=== PATIENT | female | born 1965 | race Caucasian/White ===

== ENCOUNTER → 2020-08-13 | Outpatient (CLI) | payer OTHER ==
--- NOTE | 2020-08-13 16:45 | MR ---
EXAMINATION TYPE: MR knee RT wo con DATE OF EXAM: 08/13/2020 COMPARISON: None HISTORY: Right knee pain TECHNIQUE: Multiplanar, multisequence imaging of the right knee is performed without IV contrast. FINDINGS: MEDIAL MENISCUS: There is increased signal within the substance of the posterior horn medial meniscus . Communication with an articular surface is not identified. Internal derangement type I tear could b e considered. Anterior horn medial meniscus appears intact. LATERAL MENISCUS: Anterior and posterior horns are intact without tear. CRUCIATE LIGAMENTS: The anterior and posterior cruciate ligaments are intact and unremarkable. COLLATERAL LIGAMENTS: The medial collateral ligament and lateral collateral ligament complex are inta ct. Medial collateral ligament has increased signal adjacent. Mild sprain could be considered. EXTENSOR MECHANISM: Visualized quadriceps and patellar tendons are intact. EFFUSION: There is a moderate suprapatellar joint effusion present. POPLITEAL CYST: No popliteal/gutierrez cyst. TRICOMPARTMENT SPACES: There is narrowing of the medial compartment joint space. CARTILAGE: Thinning of the articular cartilage is noted at the medial femoral condyle and medial tibi al plateau. Milder thinning of the articular cartilage is in the lateral compartment. Patellofemoral joint space cartilage appears preserved. BONE MARROW SIGNAL: There is increased signal within the medial aspect of the medial femoral condyle and medial tibial plateau. Small contusions could be considered OTHER: No additional significant abnormality is appreciated. IMPRESSION: 1. Contusion of the medial femoral condyle and medial tibial plateau. 2. Sprain of the medial collateral ligament. 3. Type I tear posterior horn medial meniscus. 4. Moderate joint effusion. 5. Osteoarthritic degenerative change medial compartment.
== END | disposition home or self-care (01) ==
LOC: RADMRIMAIN 11:25
PROVIDERS: ATTEND Orthopaedic Surgery
DX: S83.241A Other tear of medial meniscus, current injury, right knee, initial encounter (principal); S80.01XA Contusion of right knee, initial encounter; S83.411A Sprain of medial collateral ligament of right knee, initial encounter; M17.11 Unilateral primary osteoarthritis, right knee

== ENCOUNTER → 2020-08-20 | Outpatient (CLI) | payer OTHER ==
[2020-08-20 15:43] LABS: Basophils # (A) 0.1 k/uL (0-0.2); Basophils % (A) 1 %; Eosinophils # (A) 0.1 k/uL (0-0.7); Eosinophils % (A) 2 %; HCT 45.8 % (34.0-46.0); HGB 14.6 gm/dL (11.4-16.0); Lymphocytes # (A) 2.9 k/uL (1.0-4.8); Lymphocytes % (A) 37 %; MCHC 31.8 g/dL (31.0-37.0); MCV 94.4 fL (80.0-100.0); Mean Platelet Volume 7.3; Monocytes # (A) 0.3 k/uL (0-1.0); Monocytes % (A) 4 %; Neutrophils # (A) 4.2 k/uL (1.3-7.7); Neutrophils % (A) 54 %; Platelet Count 335 k/uL (150-450); RBC 4.86 m/uL (3.80-5.40); RDW 13.7 % (11.5-15.5); WBC 7.8 k/uL (3.8-10.6)
[2020-08-20 15:48] LABS: Potassium 5.1 mmol/L (3.5-5.1)
== END | disposition home or self-care (01) ==
LOC: LABPAT 14:44
PROVIDERS: ATTEND Orthopaedic Surgery
DX: Z01.818 Encounter for other preprocedural examination (principal); M23.91 Unspecified internal derangement of right knee
CPT/HCPCS: 36415; 80051; 85025

== ENCOUNTER 2020-08-28 13:32 | Day surgery (SDC) | payer OTHER ==
--- NOTE | 2020-08-26 10:07 | HP ---
HISTORY AND PHYSICAL CHIEF COMPLAINT: Right knee pain. HISTORY OF PRESENT ILLNESS: The patient is a 55-year-old female who presents with progressive right knee pain for the past 4 months. She notes anterior medial pain along with swelling. She notes twisting and prolonged walking bother her significantly. She has tried injections in addition to medications in addition to activity modifications without much relief. She is having night symptoms. She is taking meloxicam twice daily. PAST MEDICAL HISTORY: Significant for anxiety and depression. PAST SURGICAL HISTORY: Significant for left hip and ankle surgery. FAMILY HISTORY: Noncontributory. SOCIAL HISTORY: Negative for current tobacco or alcohol use. CURRENT MEDICATIONS: Aspirin, Duloxetine, gabapentin, lamotrigine, omeprazole, hydrocodone. She denies drug allergies. FAMILY HISTORY: Noncontributory. 16 POINT REVIEW OF SYSTEMS: Otherwise reviewed and is noncontributory. PHYSICAL EXAMINATION: On examination, the patient is approximately 5 foot 6, 200 pounds of endomorphic habitus. HEENT exam is nonfocal. NECK: Supple she has painless passive motion of the right hip. Straight leg raise is negative. Active motion right knee -16 and 80 degrees of flexion. She has a large effusion. She is tender about the medial joint line. Collaterals are stable, Tristen is negative, Jag's elicits medial pain. She has an antalgic gait pattern. Her distal neurovascular exam appears intact in the right lower extremity. MRI report for the right knee shows evidence of a medial femoral condyle contusion along with edema about the medial tibial plateau. MCL sprain is noted. There is increased signal in posterior horn medial meniscus along with a moderate effusion. IMPRESSION: Right knee internal derangement, possible medial meniscal tear/possible medial femoral condyle chondral injury. RECOMMENDATIONS: I talked to the patient at length regarding her condition and treatment options. At this point, she remains quite symptomatic despite previous conservative measures. After thorough discussion, she opts to proceed with surgery. We will plan to proceed with arthroscopic evaluation with possible partial medial meniscectomy in addition to possible medial femoral chondrectomy. Will likely perform that as an outpatient procedure. Risks and benefits were discussed at length in layman's terms. MMODL / IJN: [id number] /
[2020-08-26 14:06] VITALS: BMI 30.7
[~2020-08-28 13:32] MED LIST: DEXAMETHASONE SOD PHOSPHATE 4 MG/ML 1 ML VIAL IV ONE; LACTATED RINGERS 1,000 ML IV SCH; LIDOCAINE 1% (10MG/ML) FOR IV START INTRADERMA PRN; MIDAZOLAM 2 MG/2 ML VIAL IV PRN
[2020-08-28] MEDS ORDERED: ONDANSETRON 4 MG/2 ML VIAL ONE (13:35)
[2020-08-28] MEDS ORDERED: SCOPOLAMINE 1.5MG/72HR PATCH TRANSDERM ONE (14:04)
[2020-08-28] MEDS ORDERED: fentaNYL (PF) 50 MCG/ML 2 ML AMP ONE (14:30)
[2020-08-28] MEDS ORDERED: PROPOFOL 10 MG/ML 20 ML VIAL IV ONE (14:30)
[2020-08-28] MEDS ORDERED: LIDOCAINE 1% INJ 10MG/ML (20 ML MDV) ONE (14:30)
[2020-08-28] MEDS ORDERED: SUCCINYLCHOLINE CHLORIDE 100 MG/5 ML SYR IV ONE (14:30)
[2020-08-28] MEDS ORDERED: MIDAZOLAM 2 MG/2 ML VIAL ONE (14:30)
--- NOTE | 2020-08-28 15:16 | P.OP ---
Date of Procedure: 08/28/20 Preoperative Diagnosis: Right knee internal derangement Postoperative Diagnosis: Right knee posterior medial meniscal tear/grade 3 chondral injury distal central medial femoral condyle/middle one third lateral meniscal tear Procedure(s) Performed: Right knee arthroscopic partial medial meniscectomy/partial lateral meniscectomy/medial femoral chondrectomy/microfracture medial femoral condyle Anesthesia: GENE Surgeon: Thiago Beckwith Estimated Blood Loss (ml): 10 Pathology: none sent Condition: stable Disposition: PACU Indications for Procedure: The patient's a 55-year-old female presents with progressive right knee pain and mechanical symptoms despite conservative measures. A discussion of the risks and benefits of operative intervention versus continued conservative measures was made with patient. She opted to proceed with surgery. Operative risks to include infection, neurovascular injury, development of blood clots, possible incomplete resolution of symptoms, possible worsening symptoms and need for subsequent procedures was discussed. Informed consent was obtained. Operative Findings: As below Description of Procedure: The patient was brought to the operating room, and after induction of general an esthesia examined the right knee. Collaterals were stable, Tristen was negative, and posterior drawer was negative. The right lower extremity was prepped and draped in a normal fashion. A superior lateral portal was made through a 3 mm skin incision superior and lateral to the patella. This was used for outflow. A lateral portal was made through a 5 mm vertical skin incision lateral to the patella tendon above the joint line. Diagnostic arthroscopy was performed. On inspection of the medial compartment, and oblique tear involving the medial meniscal root was noted. This was debrided back to stable base with a motorized shaver. The remaining medial meniscus was stable and intact. A corresponding grade 3 chondral injury was noted involving the distal medial femoral condyle. There was a small loose chondral flap measuring 2 x 2 millimeters. This was debrided back to see was a motorized shaver. Microfracture is performed with a power pick breeching the subchondral surface down to the bone marrow elements. On inspection of the notch, the anterior cruciate ligament appeared to be intact. On inspection of the lateral compartment, a radial tear involving the middle one third of the lateral meniscus in the white-junction was noted. This debrided back to stable base with a motorized shaver. On inspection of the patellofemoral articulation, there were some degenerative changes created to diffusely however no loose chondral fragments.. The gutters were clear debris. The knee was then thoroughly irrigated. The portals were closed with Steri-Strips. A sterile usama ssing was applied in addition to a compression stocking. The patient was awoken from general anesthesia and transferred to recovery room in good condition. Blood loss was estimated at 10 mL. No complications were incurred.
[2020-08-28 15:23] VITALS: TEMP 97.3
[2020-08-28] MEDS: HYDROmorphone 0.5 MG/0.5 ML SYRINGE IVP PRN ×3 (15:31→15:53)
[2020-08-28] MEDS ORDERED: ONDANSETRON 4 MG/2 ML VIAL IVP ONE (15:31)
[2020-08-28 15:46] VITALS: RESP 16
[2020-08-28] MEDS ORDERED: HYDROcodone/APAP 5-325MG 1 EACH TAB ONE (16:25)
[2020-08-28] MEDS ORDERED: HYDROcodone/APAP 5-325MG 1 EACH TAB PO ONE (16:25)
[2020-08-28 16:41] VITALS: BP 139/83; PULSE 73
== END 2020-08-28 17:10 | disposition home or self-care (01) ==
LOC: OR 13:32
PROVIDERS: ATTEND Orthopaedic Surgery
DX: M23.231 Derangement of other medial meniscus due to old tear or injury, right knee (principal); M23.261 Derangement of other lateral meniscus due to old tear or injury, right knee; M24.19 Other articular cartilage disorders, other specified site; K21.9 Gastro-esophageal reflux disease without esophagitis; F17.210 Nicotine dependence, cigarettes, uncomplicated; J44.9 Chronic obstructive pulmonary disease, unspecified; F41.9 Anxiety disorder, unspecified; F32.9 Major depressive disorder, single episode, unspecified; Z86.73 Personal history of transient ischemic attack (TIA), and cerebral infarction without residual deficits; Z79.1 Long term (current) use of non-steroidal anti-inflammatories (NSAID); Z79.82 Long term (current) use of aspirin; Z79.899 Other long term (current) drug therapy; Z98.890 Other specified postprocedural states
CPT/HCPCS: 29880; 29879; J2250; J1100; J0690; J2405; J2001; J3010; J0330; J2704; J1170

== ENCOUNTER → 2022-07-20 | Outpatient (CLI) | payer OTHER | END | disposition home or self-care (01) | LOC: LABPAT 10:03 | PROVIDERS: ATTEND Orthopaedic Surgery | DX: Z01.812 Encounter for preprocedural laboratory examination (principal); Z22.322 Carrier or suspected carrier of Methicillin resistant Staphylococcus aureus; M17.11 Unilateral primary osteoarthritis, right knee | CPT/HCPCS: 87070 ==

== ENCOUNTER 2022-08-21 06:01 | Day surgery (SDC) | payer BC, OTHER ==
[2022-08-18 10:14] VITALS: BMI 31.1
--- NOTE | 2022-08-20 12:11 | P.HPOR ---
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 She notes pain with weightbearing activities along with swelling, locking, and buckling. She is having night pain. She tried medications in addition to injections with only partial temporary relief. She previously had an arthroscopy in 2019. Review of Systems As per HPI Past Medical History Past Medical History: COPD, CVA/TIA, GERD/Reflux, Osteoarthritis (OA) Additional Past Medical History / Comment(s): heart murmur,, TIA 3 yrs ago, Hx MRSA x2 (axilla)., constipation., pain right knee. History of Any Multi-Drug Resistant Organisms: MRSA Date of last positivie culture/infection: november or december 2019 MDRO Source:: axilla Past Surgical History: Orthopedic Surgery Additional Past Surgical History / Comment(s): left hips surgery for bone spurs ('s), left ankle surgery (90's), RT KNEE SX, COLONOSCOPY, EGD, IUD REMOVED Past Anesthesia/Blood Transfusion Reactions: Motion Sickness, Postoperative Nausea & Vomiting (PONV) Smoking Status: Former smoker - Past Family History Mother Family Medical History: No Reported History Medications and Allergies Home Medications Medication Instructions Recorded Confirmed Type Aspirin [Adult Low Dose Aspirin EC] 81 mg PO BID 08/26/20 08/18/22 History Cariprazine HCl [Vraylar] 3 mg PO DAILY 08/26/20 08/18/22 History Collagen 1 tab PO DAILY 08/26/20 08/18/22 History DULoxetine HCL [Cymbalta] 60 mg PO DAILY 08/26/20 08/18/22 History Gabapentin [Neurontin] 1,200 mg PO BID 08/26/20 08/18/22 History Meloxicam [Mobic] 7.5 mg PO BID 08/26/20 08/18/22 History Multivit with Calcium,Iron,Min 1 each PO DAILY 08/26/20 08/18/22 History [Women's Multivitamin] Omeprazole [PriLOSEC] 40 mg PO DAILY 08/26/20 08/18/22 History Oxybutynin ER [Ditropan Xl] 15 mg PO DAILY 08/26/20 08/18/22 History QUEtiapine [SEROquel] 50 - 200 mg PO BID PRN 08/26/20 08/18/22 History HYDROcodone/APAP 5-325MG [Ellsworth 1 tab PO Q6HR PRN #21 tab 08/28/20 08/18/22 Rx 5-325] lamoTRIgine [LaMICtal] 100 mg PO DAILY 08/18/22 08/18/22 History Allergies Allergy/AdvReac Type Severity Reaction Status Date / Time ragweed pollen Allergy Unknown sinus Verified 08/18/22 09:54 symptoms Physical Examination - Knee right Appearance: effusion Effusion grade: grade 1 Varus alignment in stance: 5 degrees Tenderness with palpation: medial Pain: with flexion Gait: limping ROM: extension: -15 degrees ROM: flexion: 100 degrees Crepitus with motion: Yes Strength: extension: 5/5 Strength: flexion: 5/5 Meniscal tests: medial meniscal tests: positive, medial joint line pain: positive Results The patient is a well-developed well-nourished female approximately 5 foot 6, 200 pounds of endomorphic habitus. HEENT exam is nonfocal, neck is supple. She has painless passive motion of the right hip. Straight leg raise is negative. Her distal neurovascular appears intact in the right lower extremity. - Diagnostic results Knee x-ray: image reviewed (3 views of the right knee obtained in the office show severe medial and patellofemoral compartment with [id number] changes and subchondral sclerosis.) Assessment and Plan Assessment: Right knee severe medial and patellofemoral compartment osteoarthrosis Plan: I talked with the patient at length regarding her condition along with treatment options. At this point she is quite limited because of pain related to her osteoarthrosis despite conservative measures. After a thorough discussion, she opts to proceed with surgery. We will plan was to avoid total knee arthroplasty. Risks and benefits were discussed at length in layman's terms. We will institute DVT prophylaxis postoperatively.
[~2022-08-21 06:01] MED LIST changes: +ACETAMINOPHEN TAB 500 MG TAB PO PRN; -DEXAMETHASONE SOD PHOSPHATE 4 MG/ML 1 ML VIAL IV ONE; -LACTATED RINGERS 1,000 ML IV SCH; -LIDOCAINE 1% (10MG/ML) FOR IV START INTRADERMA PRN; +MELOXICAM 7.5 MG TAB PO PRN; -MIDAZOLAM 2 MG/2 ML VIAL IV PRN; +TRANEXAMIC ACID IN NACL,ISO-OS 1,000 MG in SALINE 1 100ML.BAG IVPB PRN
[2022-08-21] MEDS ORDERED: ONDANSETRON 4 MG/2 ML VIAL ONE (06:51)
[2022-08-21] MEDS ORDERED: fentaNYL (PF) 50 MCG/1 ML VIAL IV ONE (07:14)
[2022-08-21] MEDS ORDERED: MIDAZOLAM 2 MG/2 ML VIAL IV ONE (07:14)
[2022-08-21] MEDS ORDERED: DEXAMETHASONE SOD PHOSPHATE 4 MG/ML 1 ML VIAL IV ONE (07:15)
[2022-08-21] MEDS ORDERED: PROPOFOL 10 MG/ML 20 ML VIAL IV ONE (07:40)
[2022-08-21] MEDS ORDERED: LIDOCAINE 2% INJ 20 MG/ML (2 ML VIAL) ONE (07:40)
[2022-08-21] MEDS ORDERED: ROPIVACAINE 5 MG/ML 30 ML VIAL ONE (07:40)
[2022-08-21] MEDS ORDERED: fentaNYL (PF) 50 MCG/ML 2 ML AMP ONE (07:40)
[2022-08-21] MEDS ORDERED: KETAMINE 10 MG/ML 20 ML VIAL ONE (07:40)
[2022-08-21] MEDS ORDERED: PHENYLEPHRINE-0.9% NACL SYG 1,000 MCG/10 ML SYRINGE ONE (07:40)
[2022-08-21] MEDS ORDERED: MIDAZOLAM 2 MG/2 ML VIAL ONE (07:40)
[2022-08-21] MEDS ORDERED: SODIUM CHLORIDE 0.9% (PF) 10 ML VIAL ONE (07:40)
[2022-08-21] MEDS ORDERED: LACTATED RINGERS 1,000 ML IV ONE ×2 (07:45→09:08)
[2022-08-21] MEDS ORDERED: MAGNESIUM HYDROXIDE 2,400 MG/10 ML CUP PO PRN (09:37)
[2022-08-21] MEDS ORDERED: NALOXONE 0.4 MG/ML 1 ML VIAL IV PRN (09:37)
[2022-08-21] MEDS ORDERED: HYDROmorphone 0.5 MG/0.5 ML SYRINGE IVP PRN (09:37)
[2022-08-21] MEDS ORDERED: HYDROcodone/APAP 5-325MG 1 EACH TAB PO PRN (09:37)
--- NOTE | 2022-08-21 09:55 | P.OP ---
Date of Procedure: 08/21/22 Preoperative Diagnosis: Right knee severe tricompartmental osteoarthrosis Postoperative Diagnosis: Same Procedure(s) Performed: Right total knee arthroplastycementedposterior stabilized Implants: Depuy Attune size 6 narrow cemented femoral component, size 5 cemented tibial component, 10 mm articular surface, 35 mm cemented patellar component. This is a posterior stabilized implant. Anesthesia: regional, spinal Surgeon: Thiago Beckwith Computer Publisher #1: Srini Evans Estimated Blood Loss (ml): 50 Pathology: other (Bone fragments) Condition: stable Disposition: PACU Indications for Procedure: The patient's a 57-year-old female who presents with progressive right knee pain secondary to osteoarthrosis despite conservative measures. A discussion of the risks and benefits of operative intervention versus continued conservative measures was made with the patient. She opted to proceed with surgery. Operative risks to include infection, neurovascular injury, fracture, development of blood clots, possible component loosening/failure and need for subsequent procedures was discussed. Informed consent was obtained. Operative Findings: As below Description of Procedure: The patient was brought to the operating room, and after induction of spinal anesthesia the right lower extremity was prepped and draped in a normal fashion. The tourniquet was inflated to 270 mm marker. A longitudinal incision extending 3 finger breaths above the superior pole of patella extending to the medial aspect the tibial tubercle was then made. The skin and subcutaneous tissues were divided sharply. Electrocautery was used for hemostasis. A medial parapatellar arthrotomy was performed. The medial soft tissues to include the superficial and deep portions of the medial collateral ligament were elevated subperiosteally. The patella was everted. A portion of the retropatellar fat pad was excised sharply. The anterior cruciate ligament was sacrificed. Blunt retractors were placed. A starting hole was made in the distal femur 1 cm anterior to the posterior cruciate ligament origin. An intramedullary femoral guide was then inserted planning on 5 valgus distal cut with 9 mm distal resection. The cutting block was pinned in place. The distal cut was then made. The posterior referencing sizing guide was utilized. I felt size 6 narrow was most appropriate. 3 of external rotation was built into the system and verified off the trans-epicondylar axis and the posterior condyles. The cutting block was pinned in place. The anterior, posterior, and chamfer cuts t hen made. Bone fragments were removed. The intercondylar guide was placed and the notch cut was made with a sagittal saw. The bone block was removed in one fragment. The trial component was then placed. There is good anterior to posterior and medial to lateral fit. The distal peg holes were drilled. The trial component was removed. Attention was then paid towards preparing the proximal tibia. An extra medullary guide was utilized in line with the tibial shaft and second metatarsal distally. I planned on 2 mm resection from the medial compartment. The cutting block was pinned in place. The proximal tibial cut was then made. The bone was removed in one fragment. The remnants of the medial and lateral menisci were excised at the capsular junction with electrocautery. The tibia sized most appropriately at size 5. The trial femoral and tibial components were placed along with a 10 mm articular surface. I was able to obtain full flexion and extension with internal and external rotation. After several flexion and extension cycles, the tibial rotation was marked with electrocautery line with the medial one third of the tibial tubercle. Attention was then paid towards preparing the patella. A patella reamer was utilized taking stem to 14 mm of bone stock. A good flush cut was made. The patella sized most appropriately 35 mm. The peg holes were drilled. The trial components placed. I had good patellofemoral tracking with no hands technique. The trial components were then removed. The tibia was prepared in the appropriate rotation with appropriate drill and keel punch. The posterior osteophytes were removed with a curved osteotome. The flexion and extension gaps were checked and felt to be symmetric at 10 mm. A trial components were then removed. The bony surfaces were prepared with pulsatile lavage and dried. The tibial component was then cemented place was fully seated. Excess cement was removed. The femoral component cemented place and was fully seated. Excess cement was removed. The trial 10 mm articular surface was placed and the knee was put in full extension. The patella component was cemented place. After the cement had sufficiently hardened, the knee was again taken through a range of motion. Again I was able to obtain full flexion and extension with varus and valgus stress. The trial then mm articular surface was removed and the final one inserted. This was fully seated. Care was taken to avoid any soft tissue interposition. Pulsatile lavage was again utilized. The medial parapatellar arthrotomy was closed with #2 Ethibond suture. The tourniquet was deflated with approximately 60 minutes total tourniquet time. Final hemostasis was obtained with the cautery. There was minimal bleeding therefore a deep drain was not placed. The subcutaneous tissues were reapproximated with interrupted 2-0 Vicryl sutures. The skin was reapproximated with 3-0 subcuticular strata fix suture. Skin tape and adhesive was applied. A sterile dressing was applied. The patient was awoken from sedation and transferred to recovery room in good condition. Blood loss was estimated at 50 mL. No complications were incurred. Sponge and needle counts were correct at the end of the case. Srini HOLLOWAY assisted during the major components of this case to include exposure, bone resection, implantation, and closure.
[2022-08-21] MEDS ORDERED: ROPIVACAINE 1,100 MG, SODIUM CHLORIDE 0.9% 500 ML 330 ML, EMPTY PAIN BALL 1 EACH MISCELLANE PRN ×2 (10:14)
--- NOTE | 2022-08-21 10:20 | XR ---
EXAMINATION TYPE: XR knee limited RT DATE OF EXAM: 08/21/2022 COMPARISON: None HISTORY: Prosthesis placement TECHNIQUE: 2 view right knee FINDINGS: Tibial and femoral components of the place. No acute fracture or dislocation is evident. Po stsurgical soft tissue changes are present. IMPRESSION: 1. No acute fracture post knee replacement.
--- NOTE | 2022-08-21 10:29 | P.ANPRN ---
Procedure Note - Anesthesia - Nerve Block Performed Right Adductor Canal Infusion Time Out Performed: Yes ([id number]) Date of Procedure: 08/21/22 Procedure Start Time: 07:14 Procedure Stop Time: 07:19 Location of Patient: PreOp Indication: Acute Post-Operative Pain, Requested by Surgeon Specifically requested for management of pain by : Thiago Beckwith Sedation Type: Sedate with meaningful contact maintained Preparation: Sterile Prep, Sterile Dressing Position: Supine Catheter Depth at Skin (cm): 7 Catheter: Indwelling Needle Types: Pajunk Needle Gauge: 18 Ultrasound used to visualize needle placement: Yes Ultrasound used to observe medication spread: Yes Injectate: 0.5% Ropivacaine (see comment for volume) (15cc + 5cc nacl pf) Blood Aspirated: No Pain Paresthesia on Injection Noted: No Resistance on Injection: Normal Image Stored and Saved: Yes Events: Uneventful and Well Tolerated
--- NOTE | 2022-08-21 10:29 | P.ANPRN ---
Procedure Note - Anesthesia - Nerve Block Performed Right iPack Single Time Out Performed: Yes ([id number]) Date of Procedure: 08/21/22 Procedure Start Time: Procedure Stop Time: Location of Patient: PreOp Indication: Acute Post-Operative Pain, Requested by Surgeon Specifically requested for management of pain by DrKaren: Thiago Beckwith Sedation Type: Sedate with meaningful contact maintained Preparation: Sterile Prep Position: Supine Catheter: None Needle Types: Pajunk Needle Gauge: 21 Ultrasound used to visualize needle placement: Yes Ultrasound used to observe medication spread: Yes Injectate: 0.5% Ropivacaine (see comment for volume) (15cc + 5cc nacl pf) Blood Aspirated: No Pain Paresthesia on Injection Noted: No Resistance on Injection: Normal Image Stored and Saved: Yes Events: Uneventful and Well Tolerated
[2022-08-21] MEDS: HYDROmorphone 1 MG/ML 1 ML SYRINGE IVP PRN ×2 (13:17→17:04)
[2022-08-21] MEDS ORDERED: ONDANSETRON 4 MG TAB PO PRN (13:28)
[2022-08-21] MEDS ORDERED: IPRATROPIUM-ALBUTEROL 3 ML NEB INHALATION PRN (15:40)
--- NOTE | 2022-08-21 15:58 | XR ---
EXAMINATION TYPE: XR chest 1V portable DATE OF EXAM: 08/21/2022 COMPARISON: None INDICATION: Shortness of breath TECHNIQUE: Single frontal view of the chest is obtained. FINDINGS: The heart size is normal. The pulmonary vasculature is normal. The lungs are clear. IMPRESSION: 1. No acute pulmonary process.
[2022-08-21 17:39] LABS: Basophils % (A) 0 %; Eosinophils % (A) 0 %; HCT 35.9 % (34.0-46.0); HGB 11.9 gm/dL (11.4-16.0); Lymphocytes % (A) 9 %; MCH 30.1 pg (25.0-35.0); MCHC 33.1 g/dL (31.0-37.0); MCV 90.8 fL (80.0-100.0); Mean Platelet Volume 8.3; Monocytes # (A) 0.4 k/uL (0-1.0); Monocytes % (A) 4 %; Neutrophils # (A) 9.8 k/uL (1.3-7.7); Neutrophils % (A) 87 %; Platelet Count 287 k/uL (150-450); RBC 3.96 m/uL (3.80-5.40); RDW 13.9 % (11.5-15.5); WBC 11.2 k/uL (3.8-10.6)
[2022-08-21 17:50] LABS: African American GFR (CKD) >90 (>60 ml/min/1.73 sqM); Anion Gap 8 mmol/L; Blood Urea Nitrogen 21 mg/dL (7-17); Calcium 8.7 mg/dL (8.4-10.2); Carbon Dioxide 23 mmol/L (22-30); Chloride 109 mmol/L (98-107); Glucose 152 mg/dL (74-99); Non-African American GFR(CKD) >90 (>60 ml/min/1.73 sqM); Potassium 4.2 mmol/L (3.5-5.1); Sodium 140 mmol/L (137-145)
[2022-08-21] MEDS: IPRATROPIUM-ALBUTEROL 3 ML NEB INHALATION SCH (19:53)
[2022-08-21] MEDS: SENNOSIDES-DOCUSATE SODIUM 1 EACH TAB PO SCH (21:22)
[2022-08-21] MEDS: HYDROcodone/APAP 7.5-325MG 1 EACH TAB PO PRN (21:22)
[2022-08-21] MEDS: ASPIRIN 81 MG PO SCH (21:22)
--- NOTE | 2022-08-22 01:58 | CONS ---
CONSULTATION REASON FOR CONSULTATION: Advice regarding COPD and other medical issues requested by Orthopedic surgery. HISTORY OF PRESENT ILLNESS: This is a 57-year-old woman with a past history of COPD, GERD, CVA, and multiple medical issues, being followed by Dr. Ramirez and the patient underwent right total knee joint arthroplasty. The patient was found to be mildly hypotensive and hypoxic. Patient is rather drowsy from Dilaudid. No chest pain, no palpitations, no fever. PAST MEDICAL HISTORY: Reviewed include COPD. Rest of the history and rest of the chart is reviewed. HOME MEDICATIONS: Reviewed include Seroquel, dose and rest of the medications reviewed. ALLERGIES: Reviewed include pollen. FAMILY HISTORY: No history of heart disease or strokes in the family. SOCIAL HISTORY: Occasional alcohol and previous history of smoking. REVIEW OF SYSTEMS: A 14-point review is negative except as mentioned earlier. PHYSICAL EXAMINATION: VITAL SIGNS: Pulse 72, blood pressure 130/28, and respirations 16. HEENT: Conjunctivae normal. NECK: No JVD. CARDIOVASCULAR: S1, S2. RESPIRATION: Diminished in the bases. No rhonchi. No crackles. ABDOMEN: Soft, nontender. LEGS: Status post total knee arthroplasty. NERVOUS SYSTEM: No focal deficits. LABORATORY DATA: Not available. ASSESSMENT: 1. Status post right total knee arthroplasty. 2. Mild postoperative hypotension. 3. Mild postoperative hypoxia. 4. Chronic obstructive pulmonary disease. 5. Gastroesophageal reflux disease. 6. Degenerative joint disease. 7. History of MRSA. RECOMMENDATIONS: In this 57-year-old woman who presented with multiple medical issues, we will monitor the patient closely. I would recommend IV fluids 0.9 at 75 cc/hour. Hold off any antihypertension medications. Monitor closely. Bronchodilators. Chest x-ray, labs, and ensure oxygenation. DVT prophylaxis. Closely follow with Orthopedic surgery. Further recommendations to follow. MMODL / IJN: [id number] /
[2022-08-22] MEDS: HYDROcodone/APAP 7.5-325MG 1 EACH TAB PO PRN ×4 (03:24→23:24)
[2022-08-22] MEDS: HYDROmorphone 1 MG/ML 1 ML SYRINGE IVP PRN ×3 (04:49→18:46)
[2022-08-22] MEDS: PANTOPRAZOLE 40 MG TABLET PO SCH (06:08)
[2022-08-22] MEDS: IPRATROPIUM-ALBUTEROL 3 ML NEB INHALATION SCH ×3 (07:26→20:16)
--- NOTE | 2022-08-22 08:01 | P.PN ---
Progress Note - Text Progress Note Date: 08/22/22 ([id number]) Anesthesiology Postop day 1 status post total knee arthroplasty with adductor canal catheter. Patient doing well. VAS 7 out of 10. Gross strength intact in lower extremity. Afebrile. Denies alterations in sensorium. Catheter site intact. Heart regular rate Lungs nonlabored Abdomen nondistended Assessment: Postop day 1 status post total knee arthroplasty with adductor canal catheter Plan: 1.All questions answered. Maintain catheter 2 more days with patient removal at home. Instructions to be given at discharge. 2.This note was dictated using [employer] software. Please be advised there is a potential for misspellings or errors in curing press maintainer.
--- NOTE | 2022-08-22 09:03 | P.PN ---
Subjective Progress Note Date: 08/22/22 Principal diagnosis: Right knee osteoarthritis Patient was seen at bedside this morning lying semirecumbent position. Patient says she has been up a couple times since surgery yesterday. Patient says she has urinated. Patient says she has not had a bowel movement yet, however, patient says she has been passing gas. Patient says she has not worked with physical therapy yet. Patient says she does have a walker for home. Patient says she does have family at home that can help out. Patient is looking forward to going home later today. Patient is complaining of knee pain mostly at the front of the knee. Patient denies radiation of pain. Patient denies chest pain, fever, shortness breath, nausea, vomiting, change in vision, loss of bowel/bladder control. Objective - Vital Signs Vital signs: Vital Signs Temp 98.4 F 08/22/22 08:17 Pulse 84 08/22/22 08:17 Resp 16 08/22/22 08:17 BP 116/72 08/22/22 08:17 Pulse Ox 93 L 08/22/22 08:17 FiO2 Intake & Output 08/21/22 08/22/22 08/22/22 18:59 06:59 18:59 Intake Total 1450 Output Total 50 Balance 1400 Weight 87.5 kg Intake: IV 1450 Output: Estimated Blood Loss 50 Other: Voiding Method Toilet # Voids 2 5 - Exam Right knee: Incision is clean, dry, and intact. The exofin fusion tape is in good condition. There is minimal soft tissue swelling and ecchymosis surrounding the medial and lateral aspects of the incision. Calf is soft, no tenderness with palpation. Plantar flexion, dorsiflexion, EHL, FHL are intact. Sensory exam to light touch throughout the extremity is intact, dorsal pedis pulses 2+. - Labs CBC & Chem 7: 08/21/22 17:17 08/21/22 17:17 Labs: Abnormal Lab Results - Last 24 Hours (Table) 08/21/22 08/21/22 Range/Units 17:17 17:17 WBC 11.2 H (3.8-10.6) k/uL Neutrophils # 9.8 H (1.3-7.7) k/uL Chloride 109 H (98-107) mmol/L BUN 21 H (7-17) mg/dL Creatinine 0.51 L (0.52-1.04) mg/dL Glucose 152 H (74-99) mg/dL Assessment and Plan Assessment: 1. Right knee osteoarthritis - Postop day 1 status post right total knee arthroplasty Plan: 1. Right knee osteoarthritis - right total knee arthroplasty performed yesterday, 08/21/2022. Patient stable at bedside this morning. Patient has not been evaluated by physical therapy yet. Plan for discharge home with health services later today pending physical therapy evaluation. 2. Appreciate medical management 3. Pain management - Reyno; gabapentin 4. GI prophylaxis - senna 5. DVT prophylaxis - aspirin; Xarelto 6. PT/OT - weightbearing as tolerated with walker 7. Encourage incentive spirometer use 8. Discharge planning - plan for discharge home with health services later today pending physical therapy evaluation Time with Patient: Less than 30
[2022-08-22] MEDS: ASPIRIN 81 MG PO SCH ×2 (09:08→21:04)
[2022-08-22] MEDS: RIVAROXABAN 10 MG TAB PO SCH (09:08)
[2022-08-22] MEDS: lamoTRIgine 100 MG TAB PO SCH (09:08)
--- NOTE | 2022-08-22 09:08 | P.DS ---
Providers Date of admission: 08/21/22 Expected date of discharge: 08/22/22 Attending physician: Thiago Beckwith Consults: 08/21/22 13:28 Consult Physician Routine Consulting Provider: Ever Ramirez Consult Reason/Comments: Medical Management s/p RTKA Do you want consulting provider notified?: Yes Primary care physician: Ever Ramirez MD Hospital Course: Date of admission: 08/21/2022 Date of discharge: 1721 Admission diagnosis: Right knee osteoarthritis Discharge diagnosis: Same Attending physician: Dr. Beckwith Surgical procedures: Right total knee arthroplasty Brief history: Patient is a 57-year-old female with a history of progressive primary right knee osteoarthritis. At this point patient has failed conservative treatment measures and has opted to proceed with a elective right total knee arthroplasty. Hospital course: Details of patient's surgery can be found in operative report. Patient tolerated the procedure well and was subsequently transported to orthopedic floor. Patient's orthopeidc and medical care was provided daily. Patient had daily laboratory tests performed for evaluation of overall blood counts. Patient had daily physical therapy to include strengthening range of motion as well as education with walker ambulation. Patient was treated with Xarelto for their postoperative DVT prophylaxis during their inpatient stay. Patient was noted to have a relatively uneventful postoperative course. Patient reported satisfactory pain control with oral pain medications by postoperative day 1. Patient showed satisfactory progress with physical therapy. Patient moved steadily through the program and had no difficulty meeting the goals by postoperative day 1. Given patient's otherwise satisfactory course and having met physical therapy goals, plan is to discharge patient home with health services on postoperative day 1. Discharge condition/disposition: Patient will be discharged home with health services in stable condition. Discharge medications: Instructions are given on resumption of patient's normal daily medications per primary care recommendation, in addition patient will be prescribed [place] 7.5 mg/325 mg; Colace; Eliquis 2.5mg BID x 2 weeks. Discharge instructions: 1. Wound care and infection precautions, keep incision dry and covered while showering, no lotions, creams, moisturizers. No soaking, tubs, pools, hottubs. Do not scrub over the incision. 2. Weight-bear as tolerated with walker / cane until follow-up. 3. Ice and elevate when necessary. Do not exceed 20 minutes per hour with ice pack. 4. Utilize compression sleeve until seen at first follow up appointment. 5. Visiting nursing care. 6. Home physical therapy including home CPM. 7. Pain meds and anticoagulants per prescription. 8. Pain medication has potential to cause constipation. Increase oral fluid and fiber intake. Contact primary care provider if you have not had a bowel movement within 48 hours after discharge 9. No anti-inflammatory medication until discussed at first post operative visit, this including Motrin, Aleve, Mobic, Diclofenac. 10. Follow up in office at 2 weeks postop with Irvin Schaefer PA-C / Srini Evans PA-C 11. Follow up with your primary care doctor 7-10 days after discharge. 12. Contact [facility] with any questions, . Keep incision clean, dry, intact. While showering, cover fusion tape with Saran wrap. Keep fusion tape on until follow-up appointment in office at 2 weeks Assessment: Right knee osteoarthritis Procedures: Right total knee arthroplasty Patient Condition at Discharge: Good Plan - Discharge Summary Discharge Rx Participant: Yes New Discharge Prescriptions: New Docusate [Colace] 100 mg PO DAILY #30 capsule Apixaban [Eliquis] 2.5 mg PO BID #60 tab HYDROcodone/APAP 7.5-325MG [[place] 7.5] 1 - 2 each PO Q6HR PRN #36 tab PRN Reason: Pain No Action Multivit with Calcium,Iron,Min [Women's Multivitamin] 1 each PO DAILY Collagen 1 tab PO DAILY DULoxetine HCL [Cymbalta] 60 mg PO DAILY Gabapentin [Neurontin] 1,200 mg PO BID Aspirin [Adult Low Dose Aspirin EC] 81 mg PO BID Omeprazole [PriLOSEC] 40 mg PO DAILY Meloxicam [Mobic] 7.5 mg PO BID Oxybutynin ER [Ditropan Xl] 15 mg PO DAILY QUEtiapine [SEROquel] 50 - 200 mg PO BID PRN PRN Reason: Anxiety Cariprazine HCl [Vraylar] 3 mg PO DAILY HYDROcodone/APAP 5-325MG [[place] 5-325] 1 tab PO Q6HR PRN #21 tab PRN Reason: Pain lamoTRIgine [LaMICtal] 100 mg PO DAILY Discharge Medication List Aspirin [Adult Low Dose Aspirin EC] 81 mg PO BID 08/26/20 [History] Cariprazine HCl [Vraylar] 3 mg PO DAILY 08/26/20 [History] Collagen 1 tab PO DAILY 08/26/20 [History] DULoxetine HCL [Cymbalta] 60 mg PO DAILY 08/26/20 [History] Gabapentin [Neurontin] 1,200 mg PO BID 08/26/20 [History] Meloxicam [Mobic] 7.5 mg PO BID 08/26/20 [History] Multivit with Calcium,Iron,Min [Women's Multivitamin] 1 each PO DAILY 08/26/20 [History] Omeprazole [PriLOSEC] 40 mg PO DAILY 08/26/20 [History] Oxybutynin ER [Ditropan Xl] 15 mg PO DAILY 08/26/20 [History] QUEtiapine [SEROquel] 50 - 200 mg PO BID PRN 08/26/20 [History] HYDROcodone/APAP 5-325MG [[place] 5-325] 1 tab PO Q6HR PRN #21 tab 08/28/20 [Rx] lamoTRIgine [LaMICtal] 100 mg PO DAILY 08/18/22 [History] Apixaban [Eliquis] 2.5 mg PO BID #60 tab 08/22/22 [Rx] Docusate [Colace] 100 mg PO DAILY #30 capsule 08/22/22 [Rx] HYDROcodone/APAP 7.5-325MG [[place] 7.5] 1 - 2 each PO Q6HR PRN #36 tab 08/22/22 [Rx] Follow up Appointment(s)/Referral(s): Srini Evans, HERNAN [PHYSICIAN ROCK ROOM WORKER] - 2 Weeks [facility] [NON-STAFF] - As Needed [facility],Equipment [NON-STAFF] - As Needed (Continuous Passive Motion knee machine) Patient Instructions/Handouts: Knee Replacement (DC) Activity/Diet/Wound Care/Special Instructions: Please fax signed CPM order with chart notes to [facility] #[phone] Orthopedic Discharge Instructions: 1. Wound care and infection precautions, keep incision dry and covered while showering, no lotions, creams, moisturizers. No soaking, pools, hot tubs. Do not scrub over incision. 2. Weight-bear as tolerated with walker / cane until follow-up. 3. Ice and elevate when necessary. Do not exceed 20 minutes per hour with ice pack. 4. Utilize compression sleeve until seen at first follow up appointment. 5. Pain meds and anticoagulants per prescription. 6. Pain medication has potential to cause constipation. Increase oral fluid and fiber intake. Contact primary care provider if you have not had a bowel movement within 48 hours after discharge. 7. No anti-inflammatory medication until discussed at first post operative visit, this including Motrin, Aleve, Mobic, Diclofenac 8. Follow up in office at 2 weeks postop with Irvin Schaefer PA-C / Srini Evans PA-C 9. Follow up with your primary care doctor 7-10 days after discharge. 10. Contact [facility] with any questions, . Keep incision clean, dry, intact. While showering, cover fusion tape with Saran wrap. Keep fusion tape on until follow-up appointment in office in 2 weeks. Discharge Disposition: HOME WITH HOME HEALTH SERVICES
[2022-08-22] MEDS: MULTIVITAMINS, THERA 1 EACH TAB PO SCH (09:09)
[2022-08-22] MEDS: OXYBUTYNIN 15 MG TAB.ER.24 PO SCH (10:41)
[2022-08-22 11:54] LABS: HCT 30.9 % (37.2-46.3); HGB 10.2 g/dL (12.0-15.0); MCH 29.6 pg (27.0-32.0); MCV 89.6 fL (80.0-97.0); Mean Platelet Volume 10.6 fL (9.5-12.2); NRBC Per 100 WBC 0 /100 WBCS (0.0-0.0); Platelet Count 275 X 10*3/uL (140-440); RBC 3.45 X 10*6/uL (4.10-5.20); RDW 14.8 % (11.5-14.5); WBC 12.41 X 10*3/uL (4.50-10.00)
[2022-08-22 12:09] LABS: African American GFR (CKD) 126.3 (60.0-200.0); Anion Gap 10.8 mmol/L (10.00-18.00); BUN/Creat Ratio 35.6 Ratio (12.00-20.00); Blood Urea Nitrogen 17.8 mg/dL (9.0-27.0); Calcium 8.5 mg/dL (8.7-10.3); Carbon Dioxide 22.2 mmol/L (20.0-27.5); Potassium 3.7 mmol/L (3.5-5.5)
[2022-08-22 12:40] LABS: Basophils # (A) 0.04 X 10*3/uL (0.00-0.10); Basophils % (A) 0.3 %; Eosinophils # (A) 0.03 X 10*3/uL (0.04-0.35); Eosinophils % (A) 0.2 %; Immature Grans, Automated 0.2 %; Lymphocytes # (A) 5.07 X 10*3/uL (0.90-5.00); Lymphocytes % (A) 40.9 %; Monocytes # (A) 1.14 X 10*3/uL (0.20-1.00); Monocytes % (A) 9.2 %; Neutrophils % (A) 49.2 %
--- NOTE | 2022-08-22 20:38 | P.PN ---
Subjective This is a pleasant 56 years old female with past medical history of osteoarthritis, GERD, CVA/TIA and COPD, also anxiety. Patient admitted with sev ere osteoarthritis of the right knee status post right total knee arthroplasty. Today postop day #1. Patient was lying in bed, denies chest pain or dyspnea, denies abdominal pain and vomiting of diarrhea, no urinary complaints, Her white cell count is 12.4 compared to 11.7 yesterday, hemoglobin slightly low at 10.2. Home medications reviewed, Eliquis and listed as one of her home medication susi fan when I asked the patient she declined taking Eliquis or blood thinner. However patient currently on Xarelto by surgery team Blood pressure improved and currently 143/70, afebrile and resolved Vitas looks stable Objective - Vital Signs Vital signs: Vital Signs Temp 98.4 F 08/22/22 08:17 Pulse 72 08/22/22 11:38 Resp 16 08/22/22 08:17 BP 116/72 08/22/22 08:17 Pulse Ox 93 L 08/22/22 08:17 FiO2 Intake & Output 08/21/22 08/22/22 08/22/22 18:59 06:59 18:59 Intake Total 1450 Output Total 50 Balance 1400 Weight 87.5 kg Intake: IV 1450 Output: Estimated Blood Loss 50 Other: Voiding Method Toilet # Voids 2 5 - Exam GENERAL: The patient is alert and oriented x3, not in any acute distress. Well developed, well nourished. HEENT: Pupils are round and equally reacting to light. EOMI. No scleral icterus. No conjunctival pallor. Normocephalic, atraumatic. No pharyngeal erythema. No thyromegaly. CARDIOVASCULAR: S1 and S2 present. No murmurs, rubs, or gallops. PULMONARY: Chest is clear to auscultation, no wheezing or crackles. ABDOMEN: Soft, nontender, nondistended, normoactive bowel sounds. No palpable organomegaly. -MUSCULOSKELETAL: No joint swelling or deformity. Right knee surgical wound with a dressing in a Place, of exam is deferred to surgery team EXTREMITIES: No cyanosis, clubbing, or pedal edema. NEUROLOGICAL: Gross neurological examination did not reveal any focal deficits. SKIN: No rashes. no petechiae. - Labs CBC & Chem 7: 08/22/22 07:45 08/22/22 07:45 Labs: Abnormal Lab Results - Last 24 Hours (Table) 08/21/22 08/21/22 08/22/22 Range/Units 17:17 17:17 07:45 WBC 11.2 H 12.41 H (3.8-10.6) k/uL RBC 3.45 L (4.10-5.20) X 10*6/uL Hgb 10.2 L (12.0-15.0) g/dL Hct 30.9 L (37.2-46.3) % RDW 14.8 H (11.5-14.5) % Neutrophils # 9.8 H (1.3-7.7) k/uL Chloride 109 H (98-107) mmol/L BUN 21 H (7-17) mg/dL Creatinine 0.51 L (0.52-1.04) mg/dL Glucose 152 H (74-99) mg/dL Assessment and Plan Assessment: Severe osteoarthritis status post total right knee arthroplasty COPD, not an active issue History of CVA/TIA History of anxiety Plan: Continue with pain management and DVT prophylaxis per primary team Monitored WBC, no signs of infection, antibiotics at this point have more risk than benefits, keep monitoring WBC Labs and medication were reviewed.. Continue same treatment. Continue with symptomatic treatment. Resume home medication. Monitor lytes and vitals. DVT and GI prophylaxis. Further recommendations as per clinical course of the patient We recommend patient follow up with PCP Dr. Ramirez in 1 week after discharge and she was instructed with same Thank you for consulting us
[2022-08-22] MEDS: GABAPENTIN 400 MG CAP PO SCH (21:03)
[2022-08-22] MEDS: SENNOSIDES-DOCUSATE SODIUM 1 EACH TAB PO SCH (21:04)
[2022-08-23] MEDS: PANTOPRAZOLE 40 MG TABLET PO SCH (06:10)
[2022-08-23] MEDS: HYDROcodone/APAP 7.5-325MG 1 EACH TAB PO PRN ×2 (06:11→10:53)
[2022-08-23] MEDS: IPRATROPIUM-ALBUTEROL 3 ML NEB INHALATION SCH (08:13)
[2022-08-23 08:38] VITALS: BP 146/82; PULSE 87; RESP 16; TEMP 98.7
[2022-08-23] MEDS: RIVAROXABAN 10 MG TAB PO SCH (08:39)
[2022-08-23] MEDS: OXYBUTYNIN 15 MG TAB.ER.24 PO SCH (08:39)
[2022-08-23] MEDS: MULTIVITAMINS, THERA 1 EACH TAB PO SCH (08:40)
[2022-08-23] MEDS: ASPIRIN 81 MG PO SCH (08:40)
[2022-08-23] MEDS: GABAPENTIN 400 MG CAP PO SCH (08:40)
[2022-08-23] MEDS: lamoTRIgine 100 MG TAB PO SCH (08:40)
[2022-08-23 13:29] LABS: Basophils # (A) 0.04 X 10*3/uL (0.00-0.10); Basophils % (A) 0.4 %; Eosinophils # (A) 0.06 X 10*3/uL (0.04-0.35); Eosinophils % (A) 0.6 %; HCT 29.8 % (37.2-46.3); HGB 9.8 g/dL (12.0-15.0); Immature Grans, Automated 0.3 %; Lymphocytes # (A) 2.67 X 10*3/uL (0.90-5.00); Lymphocytes % (A) 28.4 %; MCH 29.4 pg (27.0-32.0); MCHC 32.9 g/dL (32.0-37.0); MCV 89.5 fL (80.0-97.0); Mean Platelet Volume 10.8 fL (9.5-12.2); Monocytes # (A) 1.12 X 10*3/uL (0.20-1.00); Monocytes % (A) 11.9 %; NRBC Per 100 WBC 0 /100 WBCS (0.0-0.0); Neutrophils # (A) 5.49 X 10*3/uL (1.80-7.70); Neutrophils % (A) 58.4 %; Platelet Count 278 X 10*3/uL (140-440); RBC 3.33 X 10*6/uL (4.10-5.20); WBC 9.41 X 10*3/uL (4.50-10.00)
== END 2022-08-23 11:18 | disposition home health service (06) ==
LOC: OR 06:01 → 4SSUR 10:43 → OR 08-23 11:18
PROVIDERS: ATTEND Orthopaedic Surgery
DX: M17.11 Unilateral primary osteoarthritis, right knee (principal); J44.9 Chronic obstructive pulmonary disease, unspecified; K21.9 Gastro-esophageal reflux disease without esophagitis; Z79.01 Long term (current) use of anticoagulants; Z79.1 Long term (current) use of non-steroidal anti-inflammatories (NSAID); Z79.82 Long term (current) use of aspirin; Z86.14 Personal history of Methicillin resistant Staphylococcus aureus infection; Z86.73 Personal history of transient ischemic attack (TIA), and cerebral infarction without residual deficits; Z87.891 Personal history of nicotine dependence; Z96.651 Presence of right artificial knee joint
CPT/HCPCS: 27447; 94640 ×4; 97110; 97163; 80048 ×2; 85025 ×3; 73560; 71045; J2250; J1100; J0690; J2405; J1170 ×2; J2795; J3010; 64448; 64999; 76942; 88300

== ENCOUNTER → 2024-11-02 | Outpatient (CLI) | payer OTHER ==
[2024-11-02 13:15] VITALS: BP 149/85; PULSE 83; RESP 19; TEMP 97.5
--- NOTE | 2024-11-02 14:13 | XR ---
EXAMINATION TYPE: XR lumbar spine 2 or 3V DATE OF EXAM: 11/02/2024 1:44 PM COMPARISON: None. CLINICAL INDICATION: Female, 59 years old with history of M54.16, M54.12, pain TECHNIQUE: Frontal and lateral images of the lumbar spine are obtained. FINDINGS: There are 5 lumbar type vertebral bodies identified. The lumbar spine shows satisfactory alignment without evidence of acute fracture or dislocation. Vertebral body heights are within normal limits. There is moderate disc space narrowing with mild to moderate anterior spurring at the L2-L3 level. There is moderate disc space narrowing at the L4-L5 level. Bilateral pars defect L5 level randall ot be excluded. No spondylolisthesis. IMPRESSION: As above. [facility], , 11/02/2024 2:10 PM
--- NOTE | 2024-11-02 14:14 | XR ---
EXAMINATION TYPE: XR cervical spine limited DATE OF EXAM: 11/02/2024 1:44 PM COMPARISON: None. CLINICAL INDICATION: Female, 59 years old with history of M54.16, M54.12, pain TECHNIQUE: Frontal, lateral, swimmers, and open mouth view of the cervical spine are obtained. FINDINGS: The cervical spine is visualized in its entirety from C1 thru the top of T1 level, there i s grade 1 retrolisthesis C5 on C6. The pre-vertebral soft tissue appears within normal limits. The C1-C2 articulation is within normal limits on the open mouth view. There is ossific fusion at the C4- C5 level. There is moderate disc space narrowing at the C5-C6 level. Overlying soft tissue is unremar kable. IMPRESSION: As above. [facility], , 11/02/2024 2:11 PM
--- NOTE | 2024-11-02 15:00 | P.PAINPG ---
PQRS Measure Charge Sheet Comment: HISTORY OF PRESENT ILLNESS: A 59 yr old female as a referral from Dr Lacy presents today w severe and chronic neck and LBP > 3 yrs secondary to radiculopathy, spondylosis and facet arthropathy without myelopathy for evaluation. Pt states pain level is provoked at 8 /10 in intensity, constant, localized in the cervical & lumbar spine, predominantly axial, sharp in character w occasional shooting pain towards the BL shoulders, L hip and knees. Pain is provoked by walking/ standing for periods > 15 min. Pain is alleviated by PT x 6 wks which ended in 2023, physician guided home exercises 4-5 times weekly since 2023, medications, topical, THC Gummies, repositioning and rest . Oswestry axial pain score at 26. PMH: OA, COPD, CVA, GERD, Arrythmia PSH: R Knee Arthroplasty (2021), Colonoscopy/ EGD, IUD removed SH: Former tobacco user, No ETOH abuse, THC Gummies FH: Non contributory All: See list Meds: See list incl Neurontin, Mobic, ASA REVIEW OF ORGAN SYSTEMS: CONSTITUTIONAL: No fevers or chills. No recent weight loss. NEUROLOGICAL: + numbness and tingling along the distal extremities. No seizure disorders or headaches. MUSCULOSKELETAL: + pain PSYCHIATRIC: Denies current depression or suicidal thoughts. Physical Examinations : Constitutional : Cooperative , not in acute distress . Neurologic : Cranial nerve II to XII intact. No focal neurological deficits. Psychiatric : alert & oriented x 3. Matching mood & appropriate affect. Judgment & insight intact. Musculoskeletal : Cervical Spine Motor strength in the deltoid and biceps: Normal right side. Normal Left side Motor strength biceps and the wrist extensors: Normal right side . Normal left side Motor strength in the triceps muscle: Normal right side. Normal left side Deep tendon reflexes: Normal at the biceps. Normal at Brachioradialis. Normal at triceps Vertebral body tenderness to deep palpation over C6 Cervical facet loading test: positive bilaterally Spurling test: positive bilaterally Neck distraction test: positive bilaterally Celestino sign: positive bilaterally Lumbar spine Motor strength lower extremities ,thigh and legs 5/5 Right side , 5/5 Left side Deep tendon reflexes : Normal Knee Jerk. Normal Ankle Jerk Vertebral body tenderness over Roberts Test positive Lumbar facet Loading Test: positive Right / positive Left Range of motion of the lumbar spine Flexion 30 degrees, extension 10 degrees Straight Leg Raise test: Left/ Right positive at degrees Sadaf test: positive right / positive left. Severe tenderness over the Sacroiliac joint on the Right / Left sides Gaenslen test: positive bilaterally Seated flexion test: positive bilaterally. Sacral spine : Severe tenderness over the Sacroiliac joint: right side / left side Range of motion: Flexion of the lumbar spine <60 degrees Range of motion: Extension of the lumbar spine <20 degrees Gaenslen's Test positive Sadaf test: positive right side / left side Thigh Thrust Test Sacral Thrust Test Imaging: MRI non contrast cervical spine from 08/13/21 reviewed MRI non contrast lumbar spine from 08/13/21 reviewed Assessment/ Plan : Lumbar radiculopathy, Congenital C4-C5 Fusion Recommendation of x rays and PT x 6 wks M54.12/ M54.16. All questions answered. I have spent greater than 30 minutes on patient care today. Dr Lima was available by phone for the evaluation of this patient. The time was used to review the medical records including relevant urine studies and Prescription history (MAPs), review of the available imaging, evaluation and examination of the patient, coordination of care with the medical staff and if applicable referring physicians, as well as creation of the medical record Home Medications: Ambulatory Orders Cariprazine HCl [Vraylar] 3 mg PO DAILY 08/26/20 Collagen 1 tab PO DAILY 08/26/20 DULoxetine HCL [Cymbalta] 60 mg PO DAILY 08/26/20 Gabapentin [Neurontin] 1,200 mg PO BID 08/26/20 Meloxicam [Mobic] 7.5 mg PO BID 08/26/20 Multivit with Calcium,Iron,Min [Women's Multivitamin] 1 each PO DAILY 08/26/20 Omeprazole [PriLOSEC] 40 mg PO DAILY 08/26/20 Oxybutynin ER [Ditropan Xl] 15 mg PO DAILY 08/26/20 QUEtiapine [SEROquel] 50 - 200 mg PO BID PRN 08/26/20 HYDROcodone/APAP 5-325MG [[place] 5-325] 1 tab PO Q6HR PRN #21 tab 08/28/20 lamoTRIgine [LaMICtal] 100 mg PO DAILY 08/18/22 Apixaban [Eliquis] 2.5 mg PO BID #60 tab 08/23/22 Docusate [Colace] 100 mg PO DAILY #30 capsule 08/23/22 HYDROcodone/APAP 7.5-325MG [[place] 7.5] 1 - 2 each PO Q6HR PRN #36 tab 08/23/22 Controlled Substance Measures - Controlled Substance Measures Is patient prescribed a controlled substance at discharge?: No
== END ==
LOC: PNWHC3 12:34
PROVIDERS: ATTEND Specialist
DX: M54.16 Radiculopathy, lumbar region (principal); M43.22 Fusion of spine, cervical region; F12.90 Cannabis use, unspecified, uncomplicated; Z91.048 Other nonmedicinal substance allergy status; Z88.2 Allergy status to sulfonamides
CPT/HCPCS: 72040; 72100

== ENCOUNTER → 2024-12-25 | Outpatient (CLI) | payer OTHER ==
--- NOTE | 2024-12-26 10:07 | MR ---
EXAMINATION TYPE: MR cspine/lspine wo con DATE OF EXAM: 12/25/2024 9:12 PM COMPARISON: Plain film 11/02/2024.. CLINICAL INDICATION: Female, 59 years old with history of M54.12, M54.16; PHH, Neck pain and numbness into both arms, Low back pain into both legs, TECHNIQUE: Multi planar, multi sequence imaging was performed utilizing: T1-weighted, T2-weighted, a nd turbo inversion recovery imaging of the cervical and lumbar spine. IV Contrast: mL (None, if empty) FINDINGS: CERVICAL: Alignment: The cervical vertebral bodies have preserved heights. Alignment is within normal limits gi ruperto patient positioning. Bones: Scattered Modic endplate changes with osteophytes and disc space narrowing. Multilevel degener ative disc disease is noted and most pronounced at the C5-C7 vertebral levels. There is ankylosis of the C4 and C5 vertebral bodies and lateral facets. Cord: The spinal cord is unremarkable with regards to their signal intensity and morphology. Discs: Multilevel disc desiccation is present. C2-C3: No significant disc pathology. The spinal canal is patent. Bilateral facet and uncovertebral joint arthropathy are present with mild bilateral neural foraminal stenosis. C3-C4: A disc osteophyte complex is present with mild spinal canal stenosis. Bilateral facet and unc overtebral joint arthropathy are present with moderate bilateral neural foraminal stenosis. C4-C5: No significant disc pathology. The spinal canal is patent. No neural foraminal stenosis. C5-C6: A disc osteophyte complex is present with mild to moderate spinal canal stenosis. Bilateral f acet and uncovertebral joint arthropathy are present with moderate to severe bilateral neural foramin al stenosis. C6-C7: No significant disc pathology. The spinal canal is patent. No neural foraminal stenosis. C7-T1: No significant disc pathology. The spinal canal is patent. No neural foraminal stenosis. Other: None. LUMBAR: Alignment: The lumbar vertebral bodies have preserved heights and alignment. Cord: The conus medullaris and the distal spinal cord appear unremarkable with regards to their signa l intensity and morphology. Bones/Discs: Mild degeneration changes throughout the spine with osteophyte formation and facet joint arthropathy. Intervertebral disc signal is maintained. Reactive adjoining endplate edema at L2-L3 T12-L1: No evidence of significant spinal canal stenosis or neural foraminal stenosis. L1-L2: No evidence of significant spinal canal stenosis or neural foraminal stenosis. L2-L3: No evidence of significant spinal canal stenosis. Facet joint arthropathy mild bilateral neura l foraminal stenosis. L3-L4: No evidence of significant spinal canal stenosis. Facet joint arthropathy mild bilateral neura l foraminal stenosis. L4-L5: No evidence of significant spinal canal stenosis. Facet joint arthropathy mild bilateral neura l foraminal stenosis. L5-S1: The disc has a rounded posterior morphology without significant spinal canal stenosis. Facet j oint arthropathy with mild to moderate bilateral neural foraminal stenosis. No significant spinal canal or neural foraminal stenosis in the remainder of the visualized levels. Other findings: None. IMPRESSION: 1. No definitive evidence of disc herniation or significant spinal canal stenosis. 2. Multilevel mild disc degeneration with associated osteoarthritic changes. Reactive bony edema keiry ng the adjoining proximal to L3 with more moderate degeneration of the spine at this level. 3. 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 4. [id number] neural foraminal stenosis C5-C6. [facility], , 12/26/2024 10:05 AM
== END | disposition home or self-care (01) ==
LOC: RADMRIMAIN 20:19
PROVIDERS: ATTEND Specialist
DX: M51.16 Intervertebral disc disorders with radiculopathy, lumbar region (principal); M48.02 Spinal stenosis, cervical region; M47.26 Other spondylosis with radiculopathy, lumbar region; M50.11 Cervical disc disorder with radiculopathy, high cervical region; Z98.1 Arthrodesis status; R60.0 Localized edema
CPT/HCPCS: 72141; 72148

== ENCOUNTER → 2025-01-04 | Outpatient (CLI) | payer OTHER ==
[2025-01-04 14:11] VITALS: BP 153/83; PULSE 83; RESP 19; TEMP 96.9
--- NOTE | 2025-01-04 15:26 | P.PAINPG ---
PQRS Measure Charge Sheet Comment: HISTORY OF PRESENT ILLNESS: A 59 yr old female presents today w severe and chronic neck and LBP > 3 yrs secondary to radiculopathy, spondylosis and facet arthropathy without myelopathy for evaluation. Pt states pain level is provoked at 8 /10 in intensity, constant, localized in the cervical & lumbar spine, predominantly axial, sharp in character w occasional shooting pain through the L hip to the L knee and LE. Pain is provoked by walking/ standing for periods > 15 min. Pain is alleviated by PT x 6 wks which ended in 2023, physician guided home exercises 4-5 times weekly since 2023, medications, topical, THC Gummies, repositioning and rest . Inteventional procedures include Medications include Neurontin, Mobic, ASA, THC Gummies REVIEW OF ORGAN SYSTEMS: CONSTITUTIONAL: No fevers or chills. No recent weight loss. NEUROLOGICAL: + numbness and tingling along the distal extremities. No seizure disorders or headaches. MUSCULOSKELETAL: + pain PSYCHIATRIC: Denies current depression or suicidal thoug hts. Physical Examinations : Constitutional : Cooperative , not in acute distress . Neurologic : Cranial nerve II to XII intact. No focal neurological deficits. Psychiatric : alert & oriented x 3. Matching mood & appropriate affect. Judgment & insight intact. Musculoskeletal : Cervical Spine Motor strength in the deltoid and biceps: Normal right side. Normal Left side Motor strength biceps and the wrist extensors: Normal right side . Normal left side Motor strength in the triceps muscle: Normal right side. Normal left side Deep tendon reflexes: Normal at the biceps. Normal at Brachioradialis. Normal at triceps Vertebral body tenderness to deep palpation over C6 Cervical facet loading test: positive bilaterally Spurling test: positive bilaterally Neck distraction test: positive bilaterally Celestino sign: positive bilaterally Lumbar spine Motor strength lower extremities ,thigh and legs 5/5 Right side , 5/5 Left side Deep tendon reflexes : Normal Knee Jerk. Normal Ankle Jerk Vertebral body tenderness over L5 Roberts Test positive L L4-L5/ L5-S1 Lumbar facet Loading Test: positive Right / positive Left Range of motion of the lumbar spine Flexion 30 degrees, extension 10 degrees Straight Leg Raise test: Left/ Right positive at degrees Sadaf test: positive right / positive left. Severe tenderness over the Sacroiliac joint on the Right / Left sides Gaenslen test: positive bilaterally Seated flexion test: positive bilaterally. Sacral spine : Severe tenderness over the Sacroiliac joint: right side / left side Range of motion: Flexion of the lumbar spine <60 degrees Range of motion: Extension of the lumbar spine <20 degrees Gaenslen's Test positive Sadaf test: positive right side / left side Thigh Thrust Test Sacral Thrust Test Imaging: MRI non contrast cervical spine from 12/25/24 reviewed MRI non contrast lumbar spine from 12/25/24 reviewed Assessment/ Plan : L5-S1 radiculopathy, Congenital C4-C5 Ankylosis, C5-C7 DDD Recommendation of L TFESI L4-L5/ L5-S1 #1. Risks, benefits of procedure discussed and patient verbalized understanding. Protocol for discontinuation/continuation of medication surrounding procedure discussed. Short course of [place] 10/325 #18 NR. Use, side effects, adverse reactions and safe storage discussed. Patient is currently on Vraylar and a serious drug interaction can occur, in addition to THC use, patient is contraindicated for narcotic agreement. Advised pt not to take [place] with THC and pt acknowledged understanding. All questions answered. I have spent greater than 30 minutes on patient care today. Dr Lima was available by phone for the evaluation of this patient. The time was used to review the medical records including relevant urine studies and Prescription history (MAPs), review of the available imaging, evaluation and examination of the patient, coordination of care with the medical staff and if applicable referring physicians, as well as creation of the medical record PQRS Narrative: Hx Alcohol Use (MH) Yes Home Medications: Ambulatory Orders Cariprazine HCl [Vraylar] 3 mg PO DAILY 08/26/20 Collagen 1 tab PO DAILY 08/26/20 DULoxetine HCL [Cymbalta] 60 mg PO DAILY 08/26/20 Gabapentin [Neurontin] 1,200 mg PO BID 08/26/20 Meloxicam [Mobic] 7.5 mg PO BID 08/26/20 Multivit with Calcium,Iron,Min [Women's Multivitamin] 1 each PO DAILY 08/26/20 Omeprazole [PriLOSEC] 40 mg PO DAILY 08/26/20 Oxybutynin ER [Ditropan Xl] 15 mg PO DAILY 08/26/20 QUEtiapine [SEROquel] 50 - 200 mg PO BID PRN 08/26/20 HYDROcodone/APAP 5-325MG [[place] 5-325] 1 tab PO Q6HR PRN #21 tab 08/28/20 lamoTRIgine [LaMICtal] 100 mg PO DAILY 08/18/22 Apixaban [Eliquis] 2.5 mg PO BID #60 tab 08/23/22 Docusate [Colace] 100 mg PO DAILY #30 capsule 08/23/22 HYDROcodone/APAP 7.5-325MG [[place] 7.5] 1 - 2 each PO Q6HR PRN #36 tab 08/23/22 LORazepam 1 mg PO DAILY 1 Days #2 tab 12/21/24 Controlled Substance Measures - Controlled Substance Measures Is patient prescribed a controlled substance at discharge?: Yes When asked, does pt state using other controlled substances?: No If prescribed controlled substance>3 days was MAPS reviewed?: Prescribed <3 Days
== END ==
LOC: PNWHC3 13:48
PROVIDERS: ATTEND Specialist
DX: M47.26 Other spondylosis with radiculopathy, lumbar region (principal); M51.16 Intervertebral disc disorders with radiculopathy, lumbar region; G89.29 Other chronic pain; M54.50 Low back pain, unspecified; M54.2 Cervicalgia; M43.22 Fusion of spine, cervical region; F12.90 Cannabis use, unspecified, uncomplicated; Z88.2 Allergy status to sulfonamides; Z91.048 Other nonmedicinal substance allergy status
CPT/HCPCS: 99211

== ENCOUNTER → 2025-02-26 | Outpatient (CLI) | payer OTHER ==
[2025-02-26 14:02] VITALS: BP 120/76; PULSE 84; RESP 17
--- NOTE | 2025-02-26 16:03 | P.PAINPG ---
Objective - Vital Signs Vital signs: Vital Signs Temp Pulse 84 02/26/25 13:50 Resp 17 02/26/25 13:50 BP 120/76 02/26/25 13:50 Pulse Ox 98 02/26/25 13:50 FiO2 Intake & Output 02/25/25 02/26/25 02/26/25 18:59 06:59 18:59 Weight 88.451 kg PQRS Measure Charge Sheet Mode of Arrival: Ambulatory Comment: HISTORY OF PRESENT ILLNESS: A 59 yr old female presents today w severe and chronic neck and LBP > 3 yrs secondary to radiculopathy, spondylosis and facet arthropathy without myelopathy for evaluation s/p L TFESI L4-L5/ L5-S1 #1. Pt states she experienced 60% pain relief x 2-3 wks s/p procedure. Pt states pain level is provoked at 8 /10 in intensity, constant, localized in the cervical & lumbar spine, predominantly axial, sharp in character w occasional shooting pain through the L hip to the L knee and LE. Pain is provoked by walking/ standing for periods > 15 min. Pain is alleviated by PT x 6 wks which ended in Spr 2023, physician guided home exercises 4-5 times weekly since 2023, medications, topical, THC Gummies, repositioning and rest . Pt has requested narcotic pain medications multiple times, despite understanding that they are contraindicated when on THC products. Refuses Lidoderm and non narcotic alternatives. Inteventional procedures include L TFESI L4-L5/ L5-S1 x1 (01/28) Medications include Neurontin, Mobic, ASA, THC Gummies REVIEW OF ORGAN SYSTEMS: CONSTITUTIONAL: No fevers or chills. No recent weight loss. NEUROLOGICAL: + numbness and tingling along the distal extremities. No seizure disorders or headaches. MUSCULOSKELETAL: + pain PSYCHIATRIC: Denies current depression or suicidal thoughts. Physical Examinations : Constitutional : Cooperative , not in acute distress . Neurologic : Cranial nerve II to XII intact. No focal neurological deficits. Psychiatric : alert & oriented x 3. Matching mood & appropriate affect. Judgment & insight intact. Musculoskeletal : Cervical Spine Motor strength in the deltoid and biceps: Normal right side. Normal Left side Motor strength biceps and the wrist extensors: Normal right side . Normal left side Motor strength in the triceps muscle: Normal right side. Normal left side Deep tendon reflexes: Normal at the biceps. Normal at Brachioradialis. Normal at triceps Vertebral body tenderness to deep palpation over C6 Cervical facet loading test: positive bilaterally Spurling test: positive bilaterally Neck distraction test: positive bilaterally Celestino sign: positive bilaterally Lumbar spine Motor strength lower extremities ,thigh and legs 5/5 Right side , 5/5 Left side Deep tendon reflexes : Normal Knee Jerk. Normal Ankle Jerk Vertebral body tenderness over L5 Roberts Test positive R L4-L5/ L5-S1 Lumbar facet Loading Test: positive Right / positive Left Range of motion of the lumbar spine Flexion 30 degrees, extension 10 degrees Straight Leg Raise test: Left/ Right positive at degrees Sadaf test: positive right / positive left. Severe tenderness over the Sacroiliac joint on the Right / Left sides Gaenslen test: positive bilaterally Seated flexion test: positive bilaterally. Sacral spine : Severe tenderness over the Sacroiliac joint: right side / left side Range of motion: Flexion of the lumbar spine <60 degrees Range of motion: Extension of the lumbar spine <20 degrees Gaenslen's Test positive Sadaf test: positive right side / left side Thigh Thrust Test Sacral Thrust Test Imaging: MRI non contrast cervical spine from 12/25/24 reviewed MRI non contrast lumbar spine from 12/25/24 reviewed Assessment/ Plan : L5-S1 radiculopathy, Congenital C4-C5 Ankylosis, C5-C7 radiculopathy Recommendation of R TFESI L4-L5, L5-S1 #2. Risks, benefits of procedure discussed and patient verbalized understanding. Protocol for discontinuation/continuation of medication surrounding procedure discussed. Short course of [place]am[place] 10/325 #12 NR (have done short course [place] in the past). Use, side effects, adverse reactions and safe storage discussed. Patient is currently on Vraylar and a serious drug interaction can occur, in addition to THC use, patient is contraindicated for narcotic agreement. Advised pt not to take [place] with THC and pt acknowledged understanding. All questions answered. I have spent greater than 30 minutes on patient care today. Dr Lima was available by phone for the evaluation of this patient. The time was used to review the medical records including relevant urine studies and Prescription history (MAPs), review of the available imaging, evaluation and examination of the patient, coordination of care with the medical staff and if applicable referring physicians, as well as creation of the medical record - Pain Location Lower Back Pharmacological Interventions: Medication PQRS Narrative: Blood Pressure 120/76 Pain Intensity [Lower Back] 8 Scale Used Numeric (1 - 10) Hx Alcohol Use (MH) Yes Home Medications: Ambulatory Orders DULoxetine HCL [Cymbalta] 120 mg PO DAILY 08/26/20 Gabapentin [Neurontin] 2,400 mg PO DAILY 08/26/20 Meloxicam [Mobic] 7.5 mg PO BID 08/26/20 Multivit with Calcium,Iron,Min [Women's Multivitamin] 1 each PO DAILY 08/26/20 Omeprazole [PriLOSEC] 40 mg PO DAILY 08/26/20 Albuterol Inhaler [Ventolin Hfa Inhaler] 1 - 2 puff INHALATION Q6H PRN 01/31/25 Aspirin [[place] Aspirin EC] 81 mg PO DAILY 01/31/25 Atorvastatin [Lipitor] 20 mg PO DAILY 01/31/25 Budesonide/Glycopyr/Formoterol [Breztri Aerosphere Inhaler] 1 puff INHALATION BID 01/31/25 Cariprazine HCl [Vraylar] 6 mg PO DAILY 01/31/25 LORazepam 1 mg PO DAILY PRN 01/31/25 Linaclotide [Linzess] 145 mcg PO DAILY PRN 01/31/25 Mirabegron [Mirabegron ER] 25 mg PO DAILY 01/31/25 Montelukast [Singulair] 10 mg PO HS 01/31/25 Vitamin B-12 1 dose PO DAILY 01/31/25 traZODone HCL 150 mg PO HS 01/31/25 Ketorolac [Toradol] 10 mg PO Q6HR PRN 10 Days #30 tab 02/14/25 Cyclobenzaprine [Flexeril] 10 mg PO HS PRN 30 Days #30 tab 02/26/25 traMADol HCl [Ultram] 50 mg PO Q6HR PRN 3 Days #12 tab 02/26/25 Controlled Substance Measures - Controlled Substance Measures Is patient prescribed a controlled substance at discharge?: Yes When asked, does pt state using other controlled substances?: No If prescribed controlled substance>3 days was MAPS reviewed?: Prescribed <3 Days
== END ==
LOC: PNWHC3 13:45
PROVIDERS: ATTEND Specialist
DX: M47.27 Other spondylosis with radiculopathy, lumbosacral region (principal); M43.22 Fusion of spine, cervical region; M47.22 Other spondylosis with radiculopathy, cervical region; F12.90 Cannabis use, unspecified, uncomplicated; Z91.018 Allergy to other foods; Z88.2 Allergy status to sulfonamides; Z88.1 Allergy status to other antibiotic agents
CPT/HCPCS: 99212

== ENCOUNTER 2025-03-14 09:21 | Day surgery (SDC) | payer OTHER ==
[2025-03-12 16:00] VITALS: BMI 32.3
[~2025-03-14 09:21] MED LIST changes: -ACETAMINOPHEN TAB 500 MG TAB PO PRN; -MELOXICAM 7.5 MG TAB PO PRN; +NEOMYCIN-POLYMYXIN-DEXAMETH OINT 3.5 GM TUBE RIGHT EYE ONE; -TRANEXAMIC ACID IN NACL,ISO-OS 1,000 MG in SALINE 1 100ML.BAG IVPB PRN
[2025-03-14 10:06] VITALS: RESP 16; TEMP 97
[2025-03-14] MEDS: LACTATED RINGERS 1,000 ML IV SCH (10:13)
[2025-03-14] MEDS: IV FLUID CONTINUATION 1,000 ML IV ONE (10:13)
[2025-03-14] MEDS ORDERED: DEXAMETHASONE SOD PHOSPHATE 4 MG/ML 1 ML VIAL IVP STA (10:25)
[2025-03-14] MEDS: ONDANSETRON 4 MG/2 ML VIAL IVP STA (10:29)
[2025-03-14] MEDS: DEXAMETHASONE SOD PHOSPHATE 4 MG/ML 1 ML VIAL IVP STA (10:30)
[2025-03-14] MEDS ORDERED: PROPOFOL 10 MG/ML 20 ML VIAL IV ONE (11:27)
[2025-03-14] MEDS ORDERED: LIDOCAINE 1% INJ 10MG/ML (20 ML MDV) ONE (11:27)
[2025-03-14] MEDS ORDERED: fentaNYL (PF) 50 MCG/ML 2 ML AMP ONE (11:27)
[2025-03-14] MEDS ORDERED: MIDAZOLAM 2 MG/2 ML VIAL ONE (11:27)
[2025-03-14] MEDS: BALANCED SALT IRRIG SOLN COMB2 15 ML IRRIG.SOLN OPHTHALMIC ONE (11:38)
[2025-03-14] MEDS: BUPIVACAINE (PF) 0.5% 4.5 ML, HYALURONIDASE, HUMAN RECOMB 150 UNIT, LIDOCAINE 2% (PF) 9... IO PRN (11:39)
[2025-03-14] MEDS: NEOMYCIN-POLYMYXIN-DEXAMETH OINT 3.5 GM TUBE RIGHT EYE ONE (11:39)
--- NOTE | 2025-03-14 13:05 | P.OP ---
Date of Procedure: 03/14/25 Preoperative Diagnosis: Right ET Postoperative Diagnosis: same Procedure(s) Performed: R&R, 3.5 medial, 5.0 resect LR Implants: none Anesthesia: MAC Surgeon: Cory Cruz Pathology: none sent Condition: stable Disposition: same day Indications for Procedure: double vision Operative Findings: no complications
[2025-03-14 13:32] VITALS: BP 105/68; PULSE 70
--- NOTE | 2025-03-15 09:29 | OP ---
OPERATIVE REPORT DATE OF SERVICE : 03/14/2025 PROCEDURE: Recession and resection of horizontal muscles of the right eye for esotropia. PREOPERATIVE DIAGNOSIS: Esotropia. POSTOPERATIVE DIAGNOSIS: Esotropia. ANESTHESIA: A retrobulbar with monitor anesthesia care. ESTIMATED BLOOD LOSS: Less than 5 mL. SPECIMEN TAKEN: None. NARRATIVE: After obtaining the appropriate consent, the patient was brought to the operating room. There she was placed under cardiac monitoring and prepped and draped in the usual sterile manner. After inducing Edna anesthesia, a retrobulbar anesthetic consisting of 1% Marcaine without epinephrine and 1% lidocaine without epinephrine and 150 units of Wydase was injected through the eyelid into the apex of the orbit using a 25-gauge Terrell needle. A [place] balloon was placed on the eye for 10 minutes. Once confirmation of adequate anesthesia was confirmed, the patient was then prepped and draped in the usual sterile manner. She was approached from her 12 o'clock position. Forced ductions of the eye were performed without any evidence of any restrictions and beginning with the medial rectus and inferonasal entry into the conjunctiva down to bare sclera was performed with the Mohan tenotomy scissors. This was followed by capturing the medial rectus muscle with a Green's hook, fascial tissue around the muscle and securing the muscle with a 5-0 Dacron through the vascular bundle and weaving the double-armed suture through each half 3 taps of the muscle belly. Using Denise sosa tenotomy scissors, the muscle was then amputated from its original insertion and an area 3.5 mm posterior to the original insertion was identified and marked with a bare care caliper, suture was then passed through the scleral tissue in a crossed-swords fashion. Once each half of the muscle belly was then brought to its new insertion site, the suture was then secured and trimmed. The conjunctiva tissue was then brought back over the surgery bed and secured with Vicryl sutures. A similar sort of procedure was performed on the lateral rectus. However, rather than a recession, a resection of 5 mm was performed on the muscle and the shortened lateral rectus was then brought to its original insertion site on the sclera and secured in a similar crossed- swords fashion. Sutures were trimmed and the conjunctiva closed with 8-0 Vicryl. The patient then received Maxitrol ointment, at the end of the case was then lightly patched in the usual manner. There were no complications from the procedure. She tolerated the procedure well and was returned to outpatient recovery in good condition. MADISYN / EZEKIEL: [id number] /
== END 2025-03-14 13:47 | disposition home or self-care (01) ==
LOC: OR 09:21
PROVIDERS: ATTEND Ophthalmology
DX: H49.21 Sixth [abducent] nerve palsy, right eye (principal); H52.13 Myopia, bilateral; H52.4 Presbyopia; H50.00 Unspecified esotropia; H53.2 Diplopia; E78.5 Hyperlipidemia, unspecified; I63.9 Cerebral infarction, unspecified; J44.9 Chronic obstructive pulmonary disease, unspecified; K21.9 Gastro-esophageal reflux disease without esophagitis; F17.200 Nicotine dependence, unspecified, uncomplicated; F12.90 Cannabis use, unspecified, uncomplicated; F41.9 Anxiety disorder, unspecified; M19.90 Unspecified osteoarthritis, unspecified site; G25.0 Essential tremor; J30.1 Allergic rhinitis due to pollen; Z88.2 Allergy status to sulfonamides; Z79.82 Long term (current) use of aspirin; Z79.02 Long term (current) use of antithrombotics/antiplatelets; Z79.899 Other long term (current) drug therapy
CPT/HCPCS: 67311; J2250; J3470; J1100; J2003 ×2; J2405; J3010; J2704

== ENCOUNTER 2025-03-29 11:48 | Day surgery (SDC) | payer OTHER ==
[2025-03-26 12:26] VITALS: BMI 32.3
[2025-03-29 12:25] VITALS: TEMP 97.9
[2025-03-29] MEDS ORDERED: IOPAMIDOL M200 10 ML VIAL ONE (13:26)
[2025-03-29] MEDS ORDERED: methylPREDNISolone ACETATE 80 MG/ML 1 ML VIAL ONE (13:26)
--- NOTE | 2025-03-29 13:38 | P.PCN ---
Date of Procedure: 03/29/25 Procedure(s) Performed: PREOPERATIVE DIAGNOSIS: 1-Lumbar radiculopathy . 2-lumbar foraminal stenosis. 3-lumbar spondylosis with lumbar facet arthropathy without myelopathy POSTOPERATIVE DIAGNOSIS: 1-lumbar radiculopathy. 2-lumbar foraminal stenosis. 3-lumbar spondylosis with facet arthropathy without myelopathy PROCEDURE 1. Transforaminal epidural steroid injection under fluoroscopic guidance at Right L4-5, and Right L5-S1 level. (Fluoroscopy images radiology Department ) 2. Lumbar epidurogram . ANESTHESIA: Local with 1% lidocaine 3 ml. EBL: Minimal PROCEDURE INDICATION: The patient with low back pain and radiculopathy symptoms unresponsive to conservative treatment. PROCEDURE DESCRIPTION / TECHNIQUE: The patient was seen and identified in the preoperative area. Risks, benefits, complications, and alternatives were discussed with the patient. The patient agreed to proceed with the procedure and signed the consent, and vital signs were stable. Patient was taken to the OR and time out was completed. The patient was placed in the prone position on procedure table and a pillow was placed under the abdomen to reduce lumbar lordosis. The lumbosacral area was prepped and draped in the usual sterile fashion. Critical pause was taken. Vital signs were closely monitored during the procedure. Using oblique fluoroscopy, the chin of the ``Moustapha dog at Right L4-5 level was identified, and the skin and deeper tissues just below was localized with 1% lidocaine. Subsequently, a 22-gauge 5-inch spinal needle was advanced under a tunneled view fluoroscopic guidance just underneath the chin of the ``Moustapha dog at the Right L4-5 Under lateral fluoroscopy, the needle was then advanced to the posterior border of the interforaminal space. After negative aspiration of CSF and blood and with no paresthesias, 1 mL Isovue 200 contrast dye was injected excellent epidurogram and outlining of the nerve root Subsequently, 3 mL of block solution containing 40 mg Depo-Medrol and 2 mL of 0.9% normal saline PF was injected. Needle was removed and the same procedure was repeated at the Right L5-S1 level. At the end of the procedure, skin was cleansed, and bandages were applied. COMPLICATIONS:none DISPOSITION / PLANS: The patient was placed in a supine position and transferred to the recovery area in a stable condition for observation. There was no evidence of lower extremity motor or sensory deficit after the procedure. Patient was discharged from the recovery room after meeting discharge criteria. Home discharge instructions were given to the patient by the staff. The patient was reexamined prior to discharge.
[2025-03-29] MEDS ORDERED: LACTATED RINGERS 1,000 ML IV SCH (13:46)
[2025-03-29 14:01] VITALS: BP 125/83; PULSE 79; RESP 18
--- NOTE | 2025-03-29 19:14 | FL ---
EXAMINATION TYPE: FL guided pain mgmt statistic DATE OF EXAM: 03/29/2025 FLUOROSCOPY TRANSFORAMINAL EPI Total fluoroscopy time: 6.8 seconds. Total images: 1. Total dose: 0.018 [facility], Workstation: [id number], 03/29/2025 7:11 PM
== END 2025-03-29 14:03 | disposition home or self-care (01) ==
LOC: ORPAIN 11:48
PROVIDERS: ATTEND Specialist
DX: M47.26 Other spondylosis with radiculopathy, lumbar region (principal); M48.061 Spinal stenosis, lumbar region without neurogenic claudication
CPT/HCPCS: 64483; 64484